=== PATIENT | male | born 1980 | race Caucasian/White ===

== ENCOUNTER 2021-11-29 10:43 | Inpatient (IN) | payer OTHER ==
[2021-11-29] MEDS ORDERED: MAGNESIUM HYDROX 2400MG/30ML ORAL SUSPENSION 30 ML CUP PO PRN (12:36)
[2021-11-29] MEDS ORDERED: P-EPHED 60MG/TRIPROLIDI 2.5MG TABLET PO PRN (12:36)
[2021-11-29] MEDS ORDERED: guaiFENesin 200 MG/10 ML 10 ML UNIT-DOSE CUPS PO PRN (12:36)
[2021-11-29] MEDS ORDERED: IBUPROFEN 400 MG TABLET (FP) PO PRN (12:36)
[2021-11-29] MEDS ORDERED: LOPERAMIDE HCL 2 MG CAPSULE PO PRN (12:36)
[2021-11-29] MEDS ORDERED: MAG HYDROX/AL HYDROX/SIMETH 30 ML UNIT-DOSE CUP PO PRN (12:36)
[2021-11-29] MEDS ORDERED: ACETAMINOPHEN 325 MG TABLET (FP) PO PRN (12:36)
[2021-11-29] MEDS ORDERED: MAGNESIUM CITRATE 300 ML BOTTLE PO PRN (12:36)
[2021-11-29 12:58] VITALS: BMI 27.5
[2021-11-29 15:14] LABS: HEMATOCRIT 38.2 % (35.4-49); HEMOGLOBIN 12.7 GM/dL (11.7-16.9); MCH 29.4 pg (25.7-33.7); MCHC 33.2 g/dl (32.0-35.9); MEAN CELL VOLUME 88.4 fl (80-96); MEAN PLT VOLUME 7.7 fl (7.5-11.1); PLATELET COUNT 466 10^3/uL (134-434); RBC 4.32 M/mm3 (4.00-5.60); RDW 13.9 % (11.9-15.9); WHITE BLOOD COUNT 7.2 K/mm3 (4.0-10.0)
[2021-11-29 15:24] LABS: BLOOD UREA NITROGEN 16.1 mg/dL (7-18); CALCIUM 9.6 mg/dL (8.5-10.1)
[2021-11-29 15:29] LABS: BILIRUBIN,TOTAL 0.4 mg/dL (0.2-1); TOT PROT 7.1 g/dl (6.4-8.2)
[2021-11-29 17:19] LABS: SYPHILIS W/ RPR CONF NON-REACTIVE (NONREACTIVE)
[2021-11-29] MEDS: PRENATAL VITAMINS W/ FOLIC ACID TABLET (FP) PO SCH (17:28)
[2021-11-29] MEDS: hydrOXYzine PAMOATE 25 MG CAPSULE (FP) PO SCH ×3 (17:29→21:21)
[2021-11-29 17:46] LABS: HIV INTERPRETATION NEGATIVE (NEGATIVE)
[2021-11-29] MEDS ORDERED: TUBERCULIN PPD 5 TU/0.1ML VIAL ID ONE (18:01)
[2021-11-29] MEDS: SUVOREXANT 10 MG TABLET PO PRN (21:21)
[2021-11-29] MEDS: THIAMINE HCL 100 MG TABLET (FP) PO SCH (21:21)
[2021-11-29] MEDS ORDERED: MELATONIN 5 MG TABLETS PO SCH (22:00)
[2021-11-30] MEDS: hydrOXYzine PAMOATE 25 MG CAPSULE (FP) PO SCH (06:20)
[2021-11-30] MEDS ORDERED: methaDONE HCL 10 MG TABLET PO SCH (07:30)
[2021-11-30] MEDS: PRENATAL VITAMINS W/ FOLIC ACID TABLET (FP) PO SCH (09:23)
[2021-11-30] MEDS: NICOTINE 7 MG/24 HOURS TOPICAL PATCH TD SCH (09:24)
[2021-11-30 11:18] LABS: URINE APPEARANCE CLEAR; URINE BILIRUBIN NEGATIVE (NEGATIVE); URINE COLOR YELLOW; URINE GLUCOSE (UA) NEGATIVE (NEGATIVE); URINE KETONE NEGATIVE (NEGATIVE); URINE LEUK ESTERASE NEGATIVE (NEGATIVE); URINE NITRITE NEGATIVE (NEGATIVE); URINE PROTEIN NEGATIVE (NEGATIVE)
[2021-11-30] MEDS ORDERED: ERGOCALCIFEROL (VIT D2) 50,000 UNIT (1.25 MG) CAPSULE PO SCH (11:45)
[2021-11-30] MEDS: cloNIDine HCL 0.1 MG TABLET PO SCH (12:18)
[2021-11-30] MEDS: amLODIPine BESYLATE 5 MG TABLET (FP) PO SCH (12:19)
[2021-11-30] MEDS: CYCLOBENZAPRINE HCL 10 MG TABLET (FP) PO SCH ×2 (12:45→21:40)
[2021-11-30] MEDS: THIAMINE HCL 100 MG TABLET (FP) PO SCH (21:40)
[2021-11-30] MEDS: ROSUVASTATIN CA 10 MG TABLET PO SCH (21:41)
[2021-11-30] MEDS: SUVOREXANT 10 MG TABLET PO PRN (21:43)
[2021-12-01] MEDS: PRENATAL VITAMINS W/ FOLIC ACID TABLET (FP) PO SCH (09:06)
[2021-12-01] MEDS: NICOTINE 7 MG/24 HOURS TOPICAL PATCH TD SCH (09:06)
[2021-12-01] MEDS: CYCLOBENZAPRINE HCL 10 MG TABLET (FP) PO SCH ×2 (09:06→21:42)
[2021-12-01] MEDS: cloNIDine HCL 0.1 MG TABLET PO SCH (09:36)
[2021-12-01] MEDS: amLODIPine BESYLATE 5 MG TABLET (FP) PO SCH (09:36)
[2021-12-01] MEDS ORDERED: ERGOCALCIFEROL (VIT D2) 50,000 UNIT (1.25 MG) CAPSULE PO SCH (10:30)
[2021-12-01] MEDS: PATIENT'S OWN MEDICATION (NON-FORMULARY) (Meloxicam 15 MG Tablet) PO SCH (11:53)
[2021-12-01] MEDS: ROSUVASTATIN CA 10 MG TABLET PO SCH (21:42)
[2021-12-01] MEDS: THIAMINE HCL 100 MG TABLET (FP) PO SCH (21:43)
[2021-12-01] MEDS: SUVOREXANT 10 MG TABLET PO PRN (21:44)
[2021-12-02] MEDS: cloNIDine HCL 0.1 MG TABLET PO SCH (09:53)
[2021-12-02] MEDS: amLODIPine BESYLATE 5 MG TABLET (FP) PO SCH (09:53)
[2021-12-02] MEDS: CYCLOBENZAPRINE HCL 10 MG TABLET (FP) PO SCH ×2 (09:53→21:23)
[2021-12-02] MEDS: NICOTINE 7 MG/24 HOURS TOPICAL PATCH TD SCH (09:54)
[2021-12-02] MEDS: PRENATAL VITAMINS W/ FOLIC ACID TABLET (FP) PO SCH (09:55)
[2021-12-02] MEDS ORDERED: MAG HYDROX/AL HYDROX/SIMETH -MYLANTA- ORAL SUSPENSION PO PRN (11:22)
[2021-12-02] MEDS: clonazePAM 0.5 MG ODT TABLETS SL SCH ×2 (11:30→21:45)
[2021-12-02] MEDS: NICOTINE POLACRILEX 2 MG GUM BUC PRN (11:32)
[2021-12-02] MEDS: THIAMINE HCL 100 MG TABLET (FP) PO SCH (21:22)
[2021-12-02] MEDS: ROSUVASTATIN CA 10 MG TABLET PO SCH (21:23)
[2021-12-02] MEDS: SUVOREXANT 10 MG TABLET PO PRN (21:44)
[2021-12-03] MEDS: cloNIDine HCL 0.1 MG TABLET PO SCH (09:38)
[2021-12-03] MEDS: amLODIPine BESYLATE 5 MG TABLET (FP) PO SCH (09:39)
[2021-12-03] MEDS: NICOTINE 7 MG/24 HOURS TOPICAL PATCH TD SCH (09:41)
[2021-12-03] MEDS: PRENATAL VITAMINS W/ FOLIC ACID TABLET (FP) PO SCH (09:41)
[2021-12-03] MEDS: clonazePAM 0.5 MG ODT TABLETS SL SCH ×2 (09:41→21:43)
[2021-12-03] MEDS ORDERED: methaDONE HCL 10 MG TABLET PO SCH (10:00)
[2021-12-03] MEDS: CYCLOBENZAPRINE HCL 10 MG TABLET (FP) PO SCH ×2 (10:25→21:44)
[2021-12-03] MEDS: NICOTINE POLACRILEX 2 MG GUM BUC PRN (10:25)
[2021-12-03] MEDS: ROSUVASTATIN CA 10 MG TABLET PO SCH (21:43)
[2021-12-03] MEDS: THIAMINE HCL 100 MG TABLET (FP) PO SCH (21:43)
[2021-12-04] MEDS: CYCLOBENZAPRINE HCL 10 MG TABLET (FP) PO SCH ×2 (09:51→21:39)
[2021-12-04] MEDS: PRENATAL VITAMINS W/ FOLIC ACID TABLET (FP) PO SCH (09:51)
[2021-12-04] MEDS: NICOTINE 7 MG/24 HOURS TOPICAL PATCH TD SCH (09:51)
[2021-12-04] MEDS: amLODIPine BESYLATE 5 MG TABLET (FP) PO SCH (09:52)
[2021-12-04] MEDS: clonazePAM 0.5 MG ODT TABLETS SL SCH ×2 (10:37→21:42)
[2021-12-04] MEDS: cloNIDine HCL 0.1 MG TABLET PO SCH (10:37)
[2021-12-04] MEDS: ROSUVASTATIN CA 10 MG TABLET PO SCH (21:39)
[2021-12-04] MEDS: THIAMINE HCL 100 MG TABLET (FP) PO SCH (21:39)
[2021-12-04] MEDS: SUVOREXANT 10 MG TABLET PO PRN (21:42)
[2021-12-05] MEDS: clonazePAM 0.5 MG ODT TABLETS SL SCH (09:29)
[2021-12-05] MEDS: CYCLOBENZAPRINE HCL 10 MG TABLET (FP) PO SCH ×2 (09:30→21:41)
[2021-12-05] MEDS: cloNIDine HCL 0.1 MG TABLET PO SCH (09:30)
[2021-12-05] MEDS: PRENATAL VITAMINS W/ FOLIC ACID TABLET (FP) PO SCH (09:30)
[2021-12-05] MEDS: amLODIPine BESYLATE 5 MG TABLET (FP) PO SCH (09:30)
[2021-12-05] MEDS: NICOTINE POLACRILEX 2 MG GUM BUC PRN (09:31)
[2021-12-05] MEDS: NICOTINE 7 MG/24 HOURS TOPICAL PATCH TD SCH (09:31)
[2021-12-05] MEDS: THIAMINE HCL 100 MG TABLET (FP) PO SCH (21:41)
[2021-12-05] MEDS: ROSUVASTATIN CA 10 MG TABLET PO SCH (21:41)
[2021-12-05] MEDS: SUVOREXANT 10 MG TABLET PO PRN (21:43)
[2021-12-05] MEDS: clonazePAM 0.5 MG ODT TABLETS SL PRN (21:44)
[2021-12-06] MEDS: amLODIPine BESYLATE 5 MG TABLET (FP) PO SCH (09:57)
[2021-12-06] MEDS: PRENATAL VITAMINS W/ FOLIC ACID TABLET (FP) PO SCH (09:58)
[2021-12-06] MEDS: cloNIDine HCL 0.1 MG TABLET PO SCH (10:00)
[2021-12-06] MEDS: CYCLOBENZAPRINE HCL 10 MG TABLET (FP) PO SCH ×2 (10:02→21:27)
[2021-12-06] MEDS: clonazePAM 0.5 MG ODT TABLETS SL PRN ×2 (10:02→21:30)
[2021-12-06] MEDS: NICOTINE POLACRILEX 2 MG GUM BUC PRN (10:04)
[2021-12-06] MEDS: NICOTINE 7 MG/24 HOURS TOPICAL PATCH TD SCH (10:04)
[2021-12-06] MEDS ORDERED: NICOTINE 7 MG/24 HOURS TOPICAL PATCH TD PRN (13:45)
[2021-12-06] MEDS: THIAMINE HCL 100 MG TABLET (FP) PO SCH (21:27)
[2021-12-06] MEDS: ROSUVASTATIN CA 10 MG TABLET PO SCH (21:27)
[2021-12-06] MEDS: SUVOREXANT 10 MG TABLET PO PRN (21:30)
[2021-12-07] MEDS: CYCLOBENZAPRINE HCL 10 MG TABLET (FP) PO SCH ×2 (09:39→21:41)
[2021-12-07] MEDS: amLODIPine BESYLATE 5 MG TABLET (FP) PO SCH (09:39)
[2021-12-07] MEDS: cloNIDine HCL 0.1 MG TABLET PO SCH (09:39)
[2021-12-07] MEDS: PRENATAL VITAMINS W/ FOLIC ACID TABLET (FP) PO SCH (09:40)
[2021-12-07] MEDS: clonazePAM 0.5 MG ODT TABLETS SL PRN ×2 (09:42→21:44)
[2021-12-07] MEDS: NICOTINE POLACRILEX 2 MG GUM BUC PRN (09:44)
[2021-12-07] MEDS: NICOTINE 10 MG CARTRIDGE (INHALER) IH PRN (11:46)
[2021-12-07] MEDS: SUVOREXANT 10 MG TABLET PO PRN (21:41)
[2021-12-07] MEDS: ROSUVASTATIN CA 10 MG TABLET PO SCH (21:41)
[2021-12-07] MEDS: THIAMINE HCL 100 MG TABLET (FP) PO SCH (21:41)
[2021-12-08] MEDS: amLODIPine BESYLATE 5 MG TABLET (FP) PO SCH (09:56)
[2021-12-08] MEDS: cloNIDine HCL 0.1 MG TABLET PO SCH (09:57)
[2021-12-08] MEDS: CYCLOBENZAPRINE HCL 10 MG TABLET (FP) PO SCH ×2 (09:57→21:35)
[2021-12-08] MEDS: PRENATAL VITAMINS W/ FOLIC ACID TABLET (FP) PO SCH (09:58)
[2021-12-08] MEDS: clonazePAM 0.5 MG ODT TABLETS SL PRN ×2 (09:59→21:36)
[2021-12-08] MEDS: NICOTINE 10 MG CARTRIDGE (INHALER) IH PRN (10:01)
[2021-12-08] MEDS: ROSUVASTATIN CA 10 MG TABLET PO SCH (21:35)
[2021-12-08] MEDS: THIAMINE HCL 100 MG TABLET (FP) PO SCH (21:35)
[2021-12-08] MEDS: SUVOREXANT 10 MG TABLET PO PRN (21:39)
[2021-12-09] MEDS: clonazePAM 0.5 MG ODT TABLETS SL PRN ×2 (09:28→21:18)
[2021-12-09] MEDS: CYCLOBENZAPRINE HCL 10 MG TABLET (FP) PO SCH ×2 (09:28→21:16)
[2021-12-09] MEDS: amLODIPine BESYLATE 5 MG TABLET (FP) PO SCH (09:28)
[2021-12-09] MEDS: PRENATAL VITAMINS W/ FOLIC ACID TABLET (FP) PO SCH (09:28)
[2021-12-09] MEDS: cloNIDine HCL 0.1 MG TABLET PO SCH (09:29)
[2021-12-09] MEDS: NICOTINE 10 MG CARTRIDGE (INHALER) IH PRN (10:19)
[2021-12-09] MEDS: TETRAHYDROZOLINE HCL EYE DROPS OU PRN (13:02)
[2021-12-09] MEDS: THIAMINE HCL 100 MG TABLET (FP) PO SCH (21:16)
[2021-12-09] MEDS: ROSUVASTATIN CA 10 MG TABLET PO SCH (21:16)
[2021-12-09] MEDS: SUVOREXANT 10 MG TABLET PO PRN (21:18)
[2021-12-10] MEDS: clonazePAM 0.5 MG ODT TABLETS SL PRN ×2 (09:39→21:25)
[2021-12-10] MEDS: amLODIPine BESYLATE 5 MG TABLET (FP) PO SCH (09:40)
[2021-12-10] MEDS: PRENATAL VITAMINS W/ FOLIC ACID TABLET (FP) PO SCH (09:40)
[2021-12-10] MEDS: CYCLOBENZAPRINE HCL 10 MG TABLET (FP) PO SCH ×2 (09:40→21:25)
[2021-12-10] MEDS: TETRAHYDROZOLINE HCL EYE DROPS OU PRN (09:40)
[2021-12-10] MEDS: cloNIDine HCL 0.1 MG TABLET PO SCH (09:42)
[2021-12-10] MEDS: NICOTINE 10 MG CARTRIDGE (INHALER) IH PRN (09:46)
[2021-12-10] MEDS: ROSUVASTATIN CA 10 MG TABLET PO SCH (21:23)
[2021-12-10] MEDS: THIAMINE HCL 100 MG TABLET (FP) PO SCH (21:23)
[2021-12-11] MEDS: cloNIDine HCL 0.1 MG TABLET PO SCH (10:04)
[2021-12-11] MEDS: PRENATAL VITAMINS W/ FOLIC ACID TABLET (FP) PO SCH (10:04)
[2021-12-11] MEDS: amLODIPine BESYLATE 5 MG TABLET (FP) PO SCH (10:04)
[2021-12-11] MEDS: CYCLOBENZAPRINE HCL 10 MG TABLET (FP) PO SCH ×2 (10:05→21:22)
[2021-12-11] MEDS: clonazePAM 0.5 MG ODT TABLETS SL PRN ×2 (10:07→21:22)
[2021-12-11] MEDS: TETRAHYDROZOLINE HCL EYE DROPS OU PRN (10:09)
[2021-12-11] MEDS: NICOTINE 10 MG CARTRIDGE (INHALER) IH PRN (10:10)
[2021-12-11] MEDS: THIAMINE HCL 100 MG TABLET (FP) PO SCH (21:22)
[2021-12-11] MEDS: ROSUVASTATIN CA 10 MG TABLET PO SCH (21:22)
[2021-12-11] MEDS: SUVOREXANT 10 MG TABLET PO PRN (21:22)
[2021-12-12 08:40] VITALS: RESP 18
[2021-12-12] MEDS: cloNIDine HCL 0.1 MG TABLET PO SCH (09:44)
[2021-12-12] MEDS: PRENATAL VITAMINS W/ FOLIC ACID TABLET (FP) PO SCH (09:44)
[2021-12-12] MEDS: amLODIPine BESYLATE 5 MG TABLET (FP) PO SCH (09:44)
[2021-12-12] MEDS: clonazePAM 0.5 MG ODT TABLETS SL PRN (09:45)
[2021-12-12] MEDS: CYCLOBENZAPRINE HCL 10 MG TABLET (FP) PO SCH ×2 (09:45→21:26)
[2021-12-12] MEDS: TETRAHYDROZOLINE HCL EYE DROPS OU PRN (09:46)
[2021-12-12] MEDS: NICOTINE 10 MG CARTRIDGE (INHALER) IH PRN (09:47)
[2021-12-12 20:43] VITALS: TEMP 97.5
[2021-12-12] MEDS: ROSUVASTATIN CA 10 MG TABLET PO SCH (21:26)
[2021-12-12] MEDS: THIAMINE HCL 100 MG TABLET (FP) PO SCH (21:26)
[2021-12-12] MEDS ORDERED: clonazePAM 0.5 MG ODT TABLETS SL ONE (22:00)
[2021-12-12] MEDS ORDERED: SUVOREXANT 10 MG TABLET PO PRN (22:00)
[2021-12-13] MEDS: cloNIDine HCL 0.1 MG TABLET PO SCH (09:02)
[2021-12-13] MEDS: amLODIPine BESYLATE 5 MG TABLET (FP) PO SCH (09:03)
[2021-12-13] MEDS: PRENATAL VITAMINS W/ FOLIC ACID TABLET (FP) PO SCH (09:03)
[2021-12-13] MEDS ORDERED: clonazePAM 0.5 MG ODT TABLETS SL ONE (09:10)
[2021-12-13] MEDS: CYCLOBENZAPRINE HCL 10 MG TABLET (FP) PO SCH (09:17)
[2021-12-13 09:22] VITALS: BP 122/76; PULSE 98
== END 2021-12-13 09:55 | disposition home or self-care (01) | DRG 772 ==
LOC: YASAS 10:43 → Y3E 16:50
PROVIDERS: ADMIT Allergy & Immunology; ATTEND Psychiatry & Neurology Pain Medicine
PROC: HZ42ZZZ Group Counseling for Substance Abuse Treatment, Cognitive-Behavioral (ICD-10-PCS; principal; 2021-11-29)
DX: F11.20 Opioid dependence, uncomplicated (principal); F17.210 Nicotine dependence, cigarettes, uncomplicated; F19.280 Other psychoactive substance dependence with psychoactive substance-induced anxiety disorder; F19.282 Other psychoactive substance dependence with psychoactive substance-induced sleep disorder; F19.24 Other psychoactive substance dependence with psychoactive substance-induced mood disorder; F40.00 Agoraphobia, unspecified; F41.9 Anxiety disorder, unspecified; G47.00 Insomnia, unspecified; I10 Essential (primary) hypertension; M54.2 Cervicalgia; M54.50 Low back pain, unspecified; G89.28 Other chronic postprocedural pain; Z99.89 Dependence on other enabling machines and devices
CPT/HCPCS: 36415; 80053; 81003; 85027; 86780; 86803; 87389; 93005; 93010; C9803-CS; U0003; U0005